=== PATIENT | male | born 1995 | race Caucasian/White ===

== ENCOUNTER 2017-01-14 00:51 | Emergency (ER) | payer MEDICAID ==
[~2017-01-14] VITALS: Ht 177.8 cm; Wt 86.0 kg
[2017-01-14] MEDS ORDERED: BUPIVACAINE HCL/PF 0.5% 10 ML VIAL INJ ONE (03:00)
[2017-01-14 03:40] VITALS: BP 128/78
== END 2017-01-14 03:44 | disposition home or self-care (01) ==
LOC: EMS 00:52
DX: K04.01 Reversible pulpitis (principal)
CPT/HCPCS: 64400; 99284; J3490

== ENCOUNTER 2017-11-17 15:15 | Emergency (ER) | payer MEDICAID, OTHER ==
[~2017-11-17] VITALS: Ht 177.8 cm; Wt 90.9 kg
[2017-11-17 16:25] VITALS: BP 128/88
[2017-11-17] MEDS ORDERED: PERTUSS(ACELL),DIPH,TET VAC/PF 0.5 ML VIAL IM ONE (16:30)
[2017-11-17] MEDS ORDERED: IBUPROFEN 800 MG TABLET PO ONE (16:30)
[2017-11-17] MEDS ORDERED: POVIDONE-IODINE 10% 15 ML SOLUTION UD TP ONE (16:30)
== END 2017-11-17 18:39 | disposition home or self-care (01) ==
LOC: EMS 15:16
DX: S61.432A Puncture wound without foreign body of left hand, initial encounter (principal); W45.8XXA Other foreign body or object entering through skin, initial encounter; Y93.89 Activity, other specified; Y92.89 Other specified places as the place of occurrence of the external cause; Y99.8 Other external cause status
CPT/HCPCS: 90471; 90715; 99284

== ENCOUNTER 2019-11-26 08:48 | Emergency (ER) | payer MEDICAID, OTHER ==
[~2019-11-26] VITALS: Ht 177.8 cm; Wt 90.9 kg
[2019-11-26] MEDS ORDERED: IBUPROFEN 600 MG TABLET PO ONE (09:15)
[2019-11-26 09:34] VITALS: BP 138/80
== END 2019-11-26 09:35 | disposition home or self-care (01) ==
LOC: EMS 08:49
DX: R51 Headache (principal); R53.83 Other fatigue; R11.0 Nausea; Z20.828 Contact with and (suspected) exposure to other viral communicable diseases
CPT/HCPCS: 99283; U0003

== ENCOUNTER 2019-12-12 15:21 | Emergency (ER) | payer MEDICAID ==
[~2019-12-12] VITALS: Ht 177.8 cm; Wt 104.5 kg
[2019-12-12 15:23] VITALS: BP 122/68
== END 2019-12-12 16:05 | disposition left against medical advice (07) ==
LOC: EMS 15:21
DX: R51 Headache (principal); Z53.21 Procedure and treatment not carried out due to patient leaving prior to being seen by health care provider